=== PATIENT | female | born 1990 | race Caucasian/White ===

== ENCOUNTER 2018-10-10 12:21 | Emergency (ER) | payer SELFPAY ==
[~2018-10-10] VITALS: Ht 170.2 cm; Wt 57.6 kg
[2018-10-10] MEDS ORDERED: IV NS 0.9% 1,000 ML BAG IV ONE (12:30)
[2018-10-10] MEDS ORDERED: ONDANSETRON HCL/PF 4 MG/2 ML VIAL IVP ONE (12:30)
--- NOTE | 2018-10-10 12:30 | NUR ---
BIB, BOYFRIEND. STS BEEN DRINKING SINCE LAST NIGHT. DENIES DRUG USE PER BOYFRIEND, PT STATES "SHE WANTED TO KILL HERSELF." UNABLE TO OBTAIN FURTHER HISTORY FROM PT. UPON ASSESSMENT, PT DENIES SI/HI. NO ACUTE DISTRESS NOTED. PLACED IN GOWN AND ON MONITOR. SEEN BY DR POLLOCK. AWAITING ORDERS.
[2018-10-10] MEDS ORDERED: ONDANSETRON HCL/PF 4 MG/2 ML VIAL ONE (12:37)
[2018-10-10 12:39] LABS: BASOPHILS % (AUTO) 0.8 % (0.0-2.0); EOSINOPHILS % (AUTO) 0.5 % (0.0-6.0); HEMATOCRIT 41 % (33-45); HEMOGLOBIN 13.9 g/dL (11.5-14.8); LYMPHOCYTES # (AUTO) 2.4 /CMM (0.8-4.8); LYMPHOCYTES % (AUTO) 39.8 % (20.0-44.0); MEAN CORPUSCULAR HGB CONC 34 g/dl (31.0-36.0); MEAN CORPUSCULAR VOLUME 91 fL (82-100); MONOCYTES # (AUTO) 0.2 /CMM (0.1-1.30); MONOCYTES % (AUTO) 3.2 % (2.0-12.0); NEUTROPHILS # (AUTO) 3.3 /CMM (1.8-8.9); NEUTROPHILS % (AUTO) 55.7 % (43.0-81.0); PLATELET COUNT (AUTO) 353 /CMM (150-450); RED BLOOD CELL COUNT(AUTO) 4.57 MIL/uL (4.0-5.2)
[2018-10-10 12:45] LABS: CREATININE 0.6 mg/dL (0.6-1.3); POTASSIUM 3.9 mmol/L (3.5-5.1)
[2018-10-10 12:52] LABS: ALBUMIN 3.9 g/dL (3.4-5.0); BILIRUBIN,TOTAL 0.3 mg/dL (0.2-1.0); SALICYLATE 3.2 mg/dL (2.8-20.0); TOTAL PROTEIN, SERUM 6.7 g/dL (6.4-8.2)
[2018-10-10 13:07] LABS: APPEARANCE,URINE Clear (CLEAR); BILIRUBIN,URINE Negative (NEGATIVE); BLOOD, URINE Small Ery/uL (NEGATIVE); COLOR,URINE Yellow (YELLOW); KETONES,URINE Negative (NEGATIVE); LEUKOCYTE ESTERASE ,URINE Negative (NEGATIVE); NITRITE, URINE Negative (NEGATIVE); PROTEIN,URINE Negative (NEGATIVE); UGLUCOSE Negative (NEGATIVE); UROBILINOGEN,URINE 0.2 EU/dL (0.2)
[2018-10-10 13:31] LABS: BACTERIA,URINE None seen /HPF (None Seen); SQUAMOUS EPITHELIAL CELL,UR None Seen /HPF (None Seen); WBC,URINE 0-2 /HPF (0-3)
--- NOTE | 2018-10-10 14:09 | NUR ---
Patient is resting comfortably in bed with eyes closed. Easily aroused. VSS
--- NOTE | 2018-10-10 16:04 | NUR ---
PT SLEEPING COMFORTABLY IN BED. VSS. NO COMPLAINTS AT THIS TIME.
--- NOTE | 2018-10-10 16:12 | NUR ---
PT OUT OF BED AND AGITATED. WANTS TO SMOKE. SECURITY CALLED. ENCOURAGED PT BACK TO BED TO WAIT FOR BUSINESS SUPPORT COORDINATOR
--- NOTE | 2018-10-10 17:45 | NUR ---
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
--- NOTE | 2018-10-10 18:05 | NUR ---
Patient discharged to home in stable condition. Written and verbal after care instructions given. Patient verbalizes understanding of instruction.
[2018-10-10 18:06] VITALS: BP 110/76
--- NOTE | 2018-10-10 18:06 | NUR ---
IV removed. Catheter intact and site benign. Pressure and 4x4 applied to site. No bleeding noted.
== END 2018-10-10 18:07 | disposition home or self-care (01) ==
LOC: EDBD 12:25 → ER 12:25
DX: F10.129 Alcohol abuse with intoxication, unspecified (principal); F11.10 Opioid abuse, uncomplicated; R47.81 Slurred speech; Y90.8 Blood alcohol level of 240 mg/100 ml or more
CPT/HCPCS: 36415; 80048; 80076; 80307; 80329; 81001; 84703; 85025; 96374; 99283; G0480; J2405; J7030; 80305; 81000-TC